=== PATIENT | female | born 1955 | race Two or more races ===

== ENCOUNTER → 2023-06-14 | Emergency (ER) | payer OTHER ==
[~2023-06-14] VITALS: Ht 165.1 cm; Wt 85.7 kg
[~2023-06-14] MED LIST: ADIPEX-P37.5 MG; ATORVASTATIN CA20 MG; CALTRATE 600 +1 EAC1; CHILDREN'S ASPI81 MG; COZAAR50 MG; LOSARTAN POTASS25 MG; METFORMIN HCL500 M3; OMEPRAZOLE MAGN20 MG; PREDNISONE50 MG; TOPROL XL50 M1; TRULICITY4.5 MG/0.5
== END | disposition left against medical advice (07) ==
LOC: ER 19:39
DX: Z53.21 Procedure and treatment not carried out due to patient leaving prior to being seen by health care provider (principal)